=== PATIENT | male | born 2000 ===

== ENCOUNTER 2020-10-24 17:39 | Emergency (ER) | payer OTHER ==
[~2020-10-24] VITALS: Ht 190.5 cm; Wt 70.3 kg
[2020-10-24] MEDS ORDERED: methylPREDNISolone SOD SUCC 40 MG/ML VL IM ONE (20:30)
[2020-10-24 20:39] VITALS: BP 121/79
== END 2020-10-24 20:51 | disposition home or self-care (01) ==
LOC: ER 17:39
DX: U07.0 Vaping-related disorder (principal); R07.89 Other chest pain
CPT/HCPCS: 71046; 96372; 99283; J2920